=== PATIENT | male | born 1970 | race Hispanic/Latino ===

== ENCOUNTER 2024-07-18 10:01 | Emergency (ER) | payer OTHER, SELFPAY ==
[2024-07-18] VITALS (10 sets, daily range): BP systolic 138–151; BP diastolic 78–111; PULSE 84; O2SAT 97; BMI 28.4
--- NOTE | 2024-07-18 10:34 | ED.GENMED ---
History of Present Illness
<TOÑO Carey - Last Filed: 07/19/24 14:15>
General
Chief Complaint: Dizziness
Source: patient
Exam Limitations: none
Time Seen by Provider: 07/18/24 10:21
Nursing documentation reviewed up to this point in time: agreed with
History of Present Illness
History of Present Illness:
Patient is a 53-year-old male who presents to the ER for evaluation of vertigo. Patient had a history of vertigo several years ago when he lived in [place]. He reports on Tuesday he started himself on Dramamine and Sudafed because he is mildly
congested. On Tuesday went to an ENT and was started on meclizine without improvement. Yesterday he saw his family doctor and was started on prednisone, he took 4 pills yesterday and also took Dramamine today. Patient reports he woke up feeling
okay this morning but then was sitting at his computer at 9 am and started to feel very dizzy again.
called EMS. Currently patient reports he feels better he just feels nauseous
Review of Systems
<TOÑO Carey - Last Filed: 07/19/24 14:15>
Review of Systems
Allergies reviewed?: Yes
All Other Systems: ROS reviewed and negative except as documented in HPI and ROS
Constitutional: Denies fever, fatigue or chills
EENT: Reports other (mild nasal congestion )
Respiratory: Reports no symptoms
Cardiac: Reports no symptoms
ABD/GI: Reports nausea; Denies vomiting
: Reports no symptoms
Musculoskeletal: Reports no symptoms
Skin: Reports no symptoms
Neurological: Reports dizzy ('room spinning 'sensation )
Psychiatric: Reports no symptoms
Phy Exam
<TOÑO Carey - Last Filed: 07/19/24 14:15>
General Physical Exam
General Presentation: no apparent distress
General age: appears stated age
General Skin: warm and dry
General Habitus: normal
General Mental: alert
General Hydration: appears well hydrated
Eye Exam
Eye Exam: PERRL, EOMI and other (No nystagmus bilaterally)
Cardiovascular Exam
Cardiovascular Exam: regular rate/rhythm, no murmur and normal peripheral pulses
Pulmonary Exam
Pulmonary Exam: lungs clear and no respiratory distress
Neurological Exam
Neurological Exam: alert, oriented x3, no motor deficits and no sensory deficits
Musculoskeletal Exam
Musculoskeletal Exam: full ROM
Skin Exam
Skin Exam: normal color and warm/dry
Psychiatric Exam
Psychiatric Exam: normal mood/affect
Course
<TOÑO Carey - Last Filed: 07/19/24 14:15>
Orders/Labs/Results
Orders:
Orders
07/18/24 10:40
Electrocardiogram (*1) Urgent
Reason for Study: Vertigo / Dizzy
EKG- Treatment ONCE
07/18/24 10:43
CMP [Comprehensive Metabolic Panel] Urgent
Complete Blood Count/With Diff Urgent
07/18/24 10:50
0.9% Sodium Chloride 1000 ml [Nss] 1,000 ml IV BOLUS
Ondansetron Injectable [Zofran] 4 mg IV NOW STA
07/18/24 10:55
CT Head W/o Iv Contrast Urgent
Comment:
Reason For Exam: vertigo
07/18/24 11:52
CT Sinuses W/o Iv Contrast Urgent
Comment:
Reason For Exam: congestion/vertigo
07/18/24 13:12
Add On- LAB Urgent
Tests Added?: troponin
07/18/24 13:14
Meclizine [Antivert] 25 mg PO NOW STA
07/18/24 13:39
Troponin I Routine
07/18/24 14:15
Physical Therapy Consult [Pt Eval And Treat] Urgent
Activity Level: Ambulate
Abnormal Lab Results
07/18/24
10:43
WBC 11.8 H 10^3/uL
(4.8-10.8)
Abs Immat Gran (auto) 0.1 H 10^3/uL
(0-0.05)
Absolute Neuts (auto) 8.1 H 10^3/uL
(1.4-6.5)
Absolute Monos (auto) 1.4 H 10^3/uL
(0.1-0.6)
Lymphocytes % 19.4 L %
(20.5-51.1)
Monocytes % 11.4 H %
(1.7-9.3)
Glucose 116 H mg/dl
(70-99)
ALT 59 H U/L
(0-50)
07/18/24 10:43
07/18/24 10:43
Vital Signs
Initial and Last Documented VS:
Initial Vital Signs
Temp Pulse Resp BP Pulse Ox
97.8 F 74 16 151/100 99
07/18/24 10:08 07/18/24 10:08 07/18/24 10:08 07/18/24 10:08 07/18/24 10:08
Last Documented Vital Signs
Temp Pulse Resp BP Pulse Ox
98 F 74 16 138/78 98
07/18/24 16:00 07/18/24 16:00 07/18/24 16:00 07/18/24 16:00 07/18/24 16:00
Ore Trimmer consulted with Physician
Ore Trimmer consulted with physician?: Yes
Name of Physician Consulted: Dr Curry
<Miladys Curry, DO - Last Filed: 07/18/24 15:50>
Orders/Labs/Results
Orders:
Orders
07/18/24 10:40
Electrocardiogram (*1) Urgent
Reason for Study: Vertigo / Dizzy
EKG- Treatment ONCE
07/18/24 10:43
CMP [Comprehensive Metabolic Panel] Urgent
Complete Blood Count/With Diff Urgent
07/18/24 10:50
0.9% Sodium Chloride 1000 ml [Nss] 1,000 ml IV BOLUS
Ondansetron Injectable [Zofran] 4 mg IV NOW STA
07/18/24 10:55
CT Head W/o Iv Contrast Urgent
Comment:
Reason For Exam: vertigo
07/18/24 11:52
CT Sinuses W/o Iv Contrast Urgent
Comment:
Reason For Exam: congestion/vertigo
07/18/24 13:12
Add On- LAB Urgent
Tests Added?: troponin
07/18/24 13:14
Meclizine [Antivert] 25 mg PO NOW STA
07/18/24 13:39
Troponin I Routine
07/18/24 14:15
Physical Therapy Consult [Pt Eval And Treat] Urgent
Activity Level: Ambulate
Abnormal Lab Results
07/18/24
10:43
WBC 11.8 H 10^3/uL
(4.8-10.8)
Abs Immat Gran (auto) 0.1 H 10^3/uL
(0-0.05)
Absolute Neuts (auto) 8.1 H 10^3/uL
(1.4-6.5)
Absolute Monos (auto) 1.4 H 10^3/uL
(0.1-0.6)
Lymphocytes % 19.4 L %
(20.5-51.1)
Monocytes % 11.4 H %
(1.7-9.3)
Glucose 116 H mg/dl
(70-99)
ALT 59 H U/L
(0-50)
07/18/24 10:43
07/18/24 10:43
Vital Signs
Initial and Last Documented VS:
Initial Vital Signs
Temp Pulse Resp BP Pulse Ox
97.8 F 74 16 151/100 99
07/18/24 10:08 07/18/24 10:08 07/18/24 10:08 07/18/24 10:08 07/18/24 10:08
Last Documented Vital Signs
Temp Pulse Resp BP Pulse Ox
98 F 74 16 138/78 98
07/18/24 16:00 07/18/24 16:00 07/18/24 16:00 07/18/24 16:00 07/18/24 16:00
<TOÑO Carey - Last Filed: 07/19/24 14:15>
MDM/Problems Addressed
MDM/Problems Addressed:
Patient is a 53-year male who presented to the ER for vertigo. Patient has had intermittent vertigo over the past several days. He has seen his family doctor as well as ENT though he did not take meclizine today he presented with vertiginous
symptoms worse with moving his head changing position etc. He does feel mildly congested. He denies any recent fevers no recent injury or chiropractic ambulation no recent trauma. His white count is minimally elevated 11.8 he recently did start a
steroid from his family doctor, his chemistry is unremarkable he has a normal CAT scan head and CAT scan sinuses shows mild patchy mucosal thickening of the ethmoid sinuses(he did request that this can be done).
Patient is nontoxic and was monitored here in the ER. He was given meclizine and feeling better. Patient was evaluated by physical therapy who does agree that this is benign positional vertigo and a prescription for outpatient vestibular therapy
was given to patient.
Patient has meclizine for outpatient prescription previously
<TOÑO Carey - Last Filed: 07/19/24 14:15>
*Radiology
Radiology exam reviewed: radiology read reviewed
*Pulse Oximetry
Patient hypoxic: no
*Critical Care Note
Total Time (30-74mins, 75-104mins- exclusive of procedures): Not Applicable
ED Attending Note
<TOÑO Carey - Last Filed: 07/19/24 14:15>
-
Portions of this chart may have been created with voice recognition software.� Occasional wrong word or��sound alike� substitutions may have occurred due to the inherent limitations of voice recognition software.
<Miladys Curry DO - Last Filed: 07/18/24 15:50>
ED Attending Note
Patient seen and examined by attending physician: Yes
I performed the substantive portion of visit, reviewed & personally made and approve the management plan that is documented in note by myself or DONNIE.: Yes
I performed a history and physical exam of patient and discussed management with resident, I reviewed resident's note and agree with documented findings and plan of care.: Yes
ED Attending Note:
53-year-old male with prior history of vertigo presenting to the emergency department for dizziness. Patient reports symptoms started on Tuesday, 4 days ago. He went to see his doctor who thought it was secondary to allergies so told him to take
decongestions. He has been doing so and had overall improvement of symptoms. Additionally, followed up with an ear nose and throat doctor, however at that time was not having symptoms so no interventions were done. However today, symptoms
returned, reports spinning sensation with certain head movements, particularly when looking back. Denies associated chest pain, difficulty breathing, fever, weakness or numbness to his extremities. He was told by the ear nose and throat doctor
that if symptoms return that he should go to the ER to rule out a stroke. He did take a meclizine prior to arrival. Vital signs are significant for mild hypertension.
On exam patient is very well-appearing, no acute distress or discomfort. Patient is resting comfortably. Unremarkable neurologic exam, no focal neurologic deficits. Extraocular movements intact. Mild amount of fluid behind the right TM. Patient
denies any present symptoms, however does note that when he stands up quickly he does start to feel dizzy. Prior to my assessment, patient had laboratory analysis and CT brain imaging, negative. Patient received meclizine here. You continue to
suspect vertiginous source of symptoms. Will consult with PT for vestibular therapy with ultimate plan for discharge and outpatient follow-up.
Discharge Plan
Departure
Patient Disposition: Home (Routine Discharge)
Date of Disposition: 07/18/24
Time of Disposition: 16:11
Admit to: Med/Surg
Patient with high blood pressure during this ER visit?: Yes
Condition: Fair
Covid-19: Not Applicable
Discharge Problem:
Vertigo
Instructions: Vertigo (a Type of Dizziness) (DC), BLOOD PRESSURE
Referrals:
Noam Engel, DO [Family Provider] -
Activity Restrictions/Additional Instructions:
As discussed you may continue your prednisone and take meclizine as needed for vertigo. A prescription was given to you for outpatient vestibular therapy. Please call and get that scheduled. In addition your blood pressure was elevated here in
the ER please follow-up closely with your family doctor for further reevaluation of blood pressure and reevaluation of your symptoms. You may continue to follow-up with ENT as previously recommended. Return to the ER for any worsening of symptoms.
Interventions
Interventions:
*Risk Screen - Suicide Last Done: 07/18/24 10:32
*General Assessment Last Done: 07/18/24 10:41
*Neglect/Abuse Screening Last Done: 07/18/24 11:06
ED- Fall Risk Assessment Last Done: 07/18/24 10:32
*ED COVID-19 Vaccine History Last Done: 07/18/24 10:32
*Nursing Disposition Last Done: 07/18/24 16:15
ED- Neurological Assessment Last Done: 07/18/24 11:13
ED- Cardiac Assessment Last Done: 07/18/24 11:13
ED Swallowing Screen Last Done: 07/18/24 11:13
Discharge Date and Time
Discharge Date/Time: 07/18/24 16:27
Print Language: PORTUGUESE
[2024-07-18 10:58] LABS: % Basophils 0.3 % (0-2); % Eosinophils 0.2 % (0-6); % Immature Granulocytes 0.4 % (0-0.5); % Lymphocytes 19.4 % (20.5-51.1); % Monocytes 11.4 % (1.7-9.3); % Neutrophils 68.3 % (42.2-75.2); Absolute Immature Granulocytes 0.1 10^3/uL (0-0.05); Absolute Lymphocytes 2.3 10^3/uL (1.2-3.4); Absolute Monocytes 1.4 10^3/uL (0.1-0.6); Absolute Neutrophils 8.1 10^3/uL (1.4-6.5); Hematocrit 42.1 % (39.0-52.0); Hemoglobin 14.8 g/dL (13.0-18.0); Mean Corp Hgb Conc. 35.2 g/dL (33.0-37.0); Mean Corpuscular Hgb 30.8 pg (27.0-31.0); Mean Corpuscular Volume 87.5 fL (80.0-94.0); Mean Platelet Volume 9.5 fL (7.4-10.4); Nucleated Red Blood Cells % 0 % (-); Platelet Count 212 10^3/uL (130-400); Red Blood Cell Count 4.81 10^6/uL (4.70-6.10); Red Cell Dist. Width 11.8 % (11.5-14.5); White Blood Cell Count 11.8 10^3/uL (4.8-10.8)
[2024-07-18 11:07] LABS: ALT (SGPT) 59 U/L (0-50); AST (SGOT) 34 U/L (17-59); Albumin 4.5 g/dl (3.5-5.0); Alkaline Phosphatase 66 U/L (38-126); Blood Urea Nitrogen 16 mg/dl (9-20); Calcium 9.2 mg/dl (8.4-10.2); Carbon Dioxide 26 mmol/L (22-30); Chloride 102 mmol/L (98-107); Estimated Creatinine Clearance 108 ml/min; Glucose 116 mg/dl (70-99); Potassium 3.9 mmol/L (3.5-5.1); Sodium 136 mmol/L (135-145); Total Bilirubin 0.8 mg/dl (0.2-1.3); Total Protein 7.2 g/dl (6.3-8.2); eGFR > 60.00
[2024-07-18] MEDS: NSS 1000 IV (11:08)
[2024-07-18] MEDS: ZOFRAN 4 MG IV (11:08)
[2024-07-18] MEDS: ANTIVERT 25 MG PO (13:44)
[2024-07-18 14:21] LABS: Troponin I < 0.012 ng/ml
--- NOTE | 2024-07-18 15:42 | EDRN ---
Physical Therapy in to evaluate pt, recommended outpatient follow up with vestibular therapy.
== END 2024-07-18 16:27 | disposition home or self-care (01) ==
LOC: EMR 10:01
PROVIDERS: EMERGENCY PHYSICIAN Student in an Organized Health Care Education/Training Program; FAMILY PHYSICIAN Family Medicine
DX: H81.10 Benign paroxysmal vertigo, unspecified ear (principal); I10 Essential (primary) hypertension
CPT/HCPCS: 96374; 96361; 99284; 70450; 70486; 80053; 84484; 85025; 93005

== ENCOUNTER 2024-08-01 14:19 | Outpatient (RCR) | payer OTHER, SELFPAY | END 2024-08-01 23:59 | disposition home or self-care (01) | LOC: RPT 14:19 | PROVIDERS: ATTENDING PHYSICIAN Nurse Practitioner; FAMILY PHYSICIAN Family Medicine | DX: R42 Dizziness and giddiness (principal); Z73.6 Limitation of activities due to disability | CPT/HCPCS: 97112; 97162 ==

== ENCOUNTER → 2025-05-06 14:05 | Outpatient (REF) | payer SELFPAY | LOC: HWRAD 14:05 | PROVIDERS: ATTENDING PHYSICIAN Family Medicine | DX: E78.00 Pure hypercholesterolemia, unspecified (principal) | CPT/HCPCS: 75571 ==